=== PATIENT | female | born 1970 | race Caucasian/White ===

== ENCOUNTER → 2024-06-28 | Outpatient (CLI) | LOC: M SOG 07:51 | PROVIDERS: ATTEND Physician Assistant | DX: M25.561 Pain in right knee (principal); Z53.9 Procedure and treatment not carried out, unspecified reason ==

== ENCOUNTER → 2024-06-28 | Outpatient (CLI) | payer MEDICAID, OTHER | LOC: M RAD 11:14 | PROVIDERS: ATTEND Physician Assistant | DX: M17.0 Bilateral primary osteoarthritis of knee (principal); M25.562 Pain in left knee ==

== ENCOUNTER 2025-06-29 20:40 | Emergency (ER) | payer OTHER, MEDICAID ==
[~2025-06-29] VITALS: Ht 170.2 cm; Wt 159.0 kg
[2025-06-30 02:24] VITALS: BP 180/90; TEMP 97.5; O2SAT 96
== END 2025-06-30 02:30 | disposition home or self-care (01) ==
LOC: M ED 20:40
DX: S53.431A Radial collateral ligament sprain of right elbow, initial encounter (principal); S43.401A Unspecified sprain of right shoulder joint, initial encounter; S56.911A Strain of unspecified muscles, fascia and tendons at forearm level, right arm, initial encounter; S56.912A Strain of unspecified muscles, fascia and tendons at forearm level, left arm, initial encounter; W01.198A Fall on same level from slipping, tripping and stumbling with subsequent striking against other object, initial encounter; M19.041 Primary osteoarthritis, right hand; I10 Essential (primary) hypertension; F17.200 Nicotine dependence, unspecified, uncomplicated; Z91.013 Allergy to seafood; Y92.9 Unspecified place or not applicable; Y93.89 Activity, other specified; Y99.9 Unspecified external cause status